=== PATIENT | female | born 1960 | race Caucasian/White ===

== ENCOUNTER 2017-04-23 10:18 | Emergency (ER) | payer BC ==
[2017-04-23 10:43] LABS: Bilirubin Negative (Negative); Blood, Urine Negative (Negative); Clarity CLEAR (Clear); Glucose, Urine (Dipstick) Negative (Negative); Leukocyte Negative (Negative); Nitrite Negative (Negative); Protein, Urine (Dipstick) Negative (Neg-Trace); Specific Gravity, Urine 1.005 (1.002-1.036); pH, Urine 7.5 (5.0-9.0)
[2017-04-23] MEDS ORDERED: Ondansetron HCl/PF 4 MG/2 ML Vial ONE (11:07)
[2017-04-23] MEDS ORDERED: Ketorolac Tromethamine 30 MG/ML VIAL ONE (11:07)
[2017-04-23 11:15] LABS: #Basophils 0.1 thou/uL (0.0-0.2); #Eosinphils 0.1 thou/uL (0.0-0.7); #Lymphocytes 2.1 thou/uL (1.20-3.40); #Monocytes 0.8 thou/uL (0.11-0.59); #Neutrophils 5.9 thou/uL (1.40-6.50); %Basophils 0.8 % (0.0-1.0); %Lymphocytes 23.9 % (21.0-51.0); %Monocytes 8.4 % (0.0-10.0); Hemoglobin 13.4 g/dL (12.0-16.0); Mean Corpuscular Hemoglobin 29.7 pg (27.0-31.0); Mean Corpuscular Volume 90.1 fl (81.0-99.0); Mean Platelet Volume 7.9 fL (7.4-10.4); Platelet Count 252 thou/uL (130-400); RBC Distribution Width 12.5 % (11.5-14.5); Red Blood Cell (RBC) Count 4.49 mill/uL (4.20-5.40); White Blood Cell (WBC) Count 8.9 thou/uL (4.8-10.8)
[2017-04-23 11:39] LABS: ALT (SGPT) 15 U/L (8-55); AST (SGOT) 14 U/L (5-34); Albumin 4.2 g/dL (3.5-5.0); Alkaline Phosphatase 66 U/L (40-150); Anion Gap 13 mmol/L (10-20); BUN (Urea Nitrogen) 8 mg/dL (9.8-20.1); Bilirubin, Total 0.8 mg/dL (0.2-1.2); Calc. Creatinine Clearance 0 mL/min (70-130); Calcium 9.5 mg/dL (7.8-10.44); Carbon Dioxide 25 mmol/L (22-29); Chloride 106 mmol/L (98-107); Estimated GFR-MDRD 76; Globulin 2.9 g/dL (2.4-3.5); Glucose 108 mg/dL (70-105); Lipase 20 U/L (8-78); Protein, Total 7.1 g/dL (6.0-8.3); Sodium 140 mmol/L (136-145)
--- NOTE | 2017-04-23 12:59 | CT ---
CT OF ABDOMEN AND PELVIS: Date: 04/23/17 COMPARISON: 01/14/16. HISTORY: Right-sided pain radiating into the chest and back. TECHNIQUE: Serial axial CT imaging obtained at 5 mm intervals from lung bases through pubic symphysis with IV co ntrast. Coronal reformatted imaging obtained. FINDINGS: The lack of oral contrast limits assessment of bowel. Partially imaged coronary arterial calcificatio n present. Imaged lung bases are unremarkable. No free intraperitoneal air or fluid. Biliary gas is s een, stable, evidence of prior sphincterotomy. Cholecystectomy clips are present. The spleen, pancrea s, adrenal glands, and kidneys demonstrate no acute findings. Stable prominence of the common bile du ct noted, likely on the basis of prior cholecystectomy. There is diverticulosis of the descending colon and sigmoid colon. No evidence for diverticulitis. No evidence for bowel, inflammatory change, or obstruction. No CT evidence of appendicitis. There is mild atherosclerotic calcification of the infrarenal abdominal aorta. There is no lymphadenopathy noted in the abdomen or pelvis. Review of the osseous structures demonstrates lower lumbar spine degenerative change, primarily affec ting the facet joints. IMPRESSION: No evidence for free intraperitoneal air or small bowel obstruction. POS: [facility]
[2017-04-23] MEDS ORDERED: ISOVUE-370 76%-LOCM 1 ML ONE (13:34)
== END 2017-04-23 13:44 | disposition home or self-care (01) ==
LOC: ERS 10:18
DX: R10.11 Right upper quadrant pain (principal); I10 Essential (primary) hypertension
CPT/HCPCS: 74177; 80053; 81003; 83690; 85025; 96374; 96375; J1885; J2405